=== PATIENT | female | born 1950 | race Caucasian/White ===

== ENCOUNTER 2016-09-13 08:37 | Emergency (ER) | payer OTHER ==
[~2016-09-13] VITALS: Ht 162.6 cm; Wt 86.4 kg
[2016-09-13 08:39] VITALS: BP 154/88; PULSE 81; TEMP 99.3
== END 2016-09-13 14:07 | disposition home or self-care (01) ==
LOC: COL.ER 08:37
DX: S00.33XA Contusion of nose, initial encounter (principal); S62.316A Displaced fracture of base of fifth metacarpal bone, right hand, initial encounter for closed fracture; R07.89 Other chest pain; S00.11XA Contusion of right eyelid and periocular area, initial encounter; S60.221A Contusion of right hand, initial encounter; W01.198A Fall on same level from slipping, tripping and stumbling with subsequent striking against other object, initial encounter; S00.81XA Abrasion of other part of head, initial encounter; I10 Essential (primary) hypertension; E11.9 Type 2 diabetes mellitus without complications; Z88.2 Allergy status to sulfonamides; Z79.84 Long term (current) use of oral hypoglycemic drugs

== ENCOUNTER → 2016-09-13 | Outpatient (REF) ==
[~2016-09-13] MED LIST: ACTOS 45MG45 MG/TAB PO; ACTOS30 MG PO; BYDUREON P2 MG/0.65; BYSTOLIC20 MG PO; CINNAMON500 MG PO; COREG12.5 MG PO; DIOVAN HCT 25 M1 TA1 PO; FISH OIL1 IU PO; GLUCOPHAGE500 MG/TAB PO; LEXAPRO 10MG10 MG PO; METFORMIN500 MG PO; MOTRIN 800800 MG/TAB PO; MULTIPLE VITAMI1 CAP PO; NORCO 325 MG-7.1 TAB PO; PERCOCET 325 MG1 TA2 PO; ROXICODONE 55 MG/TAB PO; TOPROL XL100 MG PO; TOPROL XL25 MG PO; VITAMIN D50000 I1 PO
== END ==
LOC: WSOH 11:20
DX: Z02.89 Encounter for other administrative examinations (principal)

== ENCOUNTER 2016-12-12 11:00 | Outpatient (RCR) | payer OTHER | END 2016-12-14 09:33 | disposition home or self-care (01) | LOC: WSOT 11:00 | DX: S62.316D Displaced fracture of base of fifth metacarpal bone, right hand, subsequent encounter for fracture with routine healing (principal); X58.XXXD Exposure to other specified factors, subsequent encounter | CPT/HCPCS: G8987-GO; G8988-GO; G8989-GO ==

== ENCOUNTER → 2016-12-26 | Outpatient (CLI) | payer MEDICARE | LOC: COL.RAD 09:40 | DX: M79.672 Pain in left foot (principal) | CPT/HCPCS: J3301 ==

== ENCOUNTER 2017-01-23 09:45 | Outpatient (RCR) | payer MEDICARE | END 2017-02-12 11:15 | disposition still patient (30) | LOC: WSPT 09:45 | DX: M17.0 Bilateral primary osteoarthritis of knee (principal) | CPT/HCPCS: G8978-GP; G8979-GP; G8980-GP ==

== ENCOUNTER → 2017-09-09 | Outpatient (CLI) | payer MEDICARE | LOC: COL.RAD 13:30 | DX: M79.672 Pain in left foot (principal) | CPT/HCPCS: J3301; Q9967 ==

== ENCOUNTER 2017-12-18 09:49 | Inpatient (IN) | payer MEDICARE ==
[~2017-12-18] VITALS: Ht 162.6 cm; Wt 82.8 kg
[2018-03-11] VITALS (11 sets, daily range): BP systolic 132–152; BP diastolic 61–87; PULSE 67–85; TEMP 98.1–98.8
[2018-03-11] MEDS ORDERED: WELLBUTRIN XL150 MG PO (06:02)
[2018-03-12 04:16] VITALS: BP 139/62; PULSE 81; TEMP 98.6
[2018-03-12 06:36] LABS: HEMATOCRIT 29.9 % (37.0-47.0)
[2018-03-12] MEDS ORDERED: ASPIRIN 32325 MG/TA1 PO (06:42)
[2018-03-12] MEDS ORDERED: ULTRAM 50MG TAB50 MG PO (06:42)
[2018-03-12] MEDS ORDERED: NORCO 325 MG-7.1 TAB PO (06:42)
[2018-03-12 07:54] VITALS: BP 130/58; PULSE 83; TEMP 98.6
[2018-03-12 12:05] VITALS: BP 133/62; PULSE 72; TEMP 98.3
[2018-03-12 15:30] VITALS: BP 151/68; PULSE 72; TEMP 98.1
[2018-03-12 19:58] VITALS: BP 141/61; PULSE 75; TEMP 97.8
[2018-03-12 23:18] VITALS: BP 132/60; PULSE 81; TEMP 97.6
[2018-03-13 04:25] VITALS: BP 110/52; BP 118/49; PULSE 57; PULSE 80; TEMP 98.2
[2018-03-13 07:30] LABS: HEMATOCRIT 31.2 % (37.0-47.0); HEMOGLOBIN 10.1 g/dl (12.5-16.0)
[2018-03-13 08:13] VITALS: BP 154/71; PULSE 85; TEMP 98.4
[2018-03-13 12:03] VITALS: BP 140/62; PULSE 73; TEMP 98.3
[2018-03-13 15:37] VITALS: BP 185/74; PULSE 73; TEMP 98.4
[2018-03-13 19:45] VITALS: BP 123/63; PULSE 85; TEMP 98.2
[2018-03-13 23:22] VITALS: BP 148/61; PULSE 89; TEMP 98.5
[2018-03-14 03:41] VITALS: BP 137/58; PULSE 88; TEMP 98.6
[2018-03-14 07:47] VITALS: BP 125/57; PULSE 83; TEMP 98.1
[2018-03-14 11:39] VITALS: BP 130/61; PULSE 80; TEMP 97.7
== END 2018-03-14 14:20 | disposition home or self-care (01) | DRG 470 ==
LOC: JCC 02-11 07:30
PROVIDERS: Orthopaedic Surgery
PROC: 0SRC0J9 Replacement of Right Knee Joint with Synthetic Substitute, Cemented, Open Approach (ICD-10-PCS; principal; 2018-03-11 07:30)
PROC: 3E0U33Z Introduction of Anti-inflammatory into Joints, Percutaneous Approach (ICD-10-PCS; 2018-03-11 07:30)
DX: M17.0 Bilateral primary osteoarthritis of knee (principal); E11.9 Type 2 diabetes mellitus without complications; I10 Essential (primary) hypertension
CPT/HCPCS: A4314; A9284; C1713; C1776; J0690; J1885; J2250; J2550; J2704; J2795; J3301; J7030; J7120; J7121

== ENCOUNTER 2018-02-20 10:45 | Outpatient (RCR) | payer MEDICARE | END 2018-02-21 08:30 | disposition home or self-care (01) | LOC: WSPT 10:45 | DX: Z01.818 Encounter for other preprocedural examination (principal); M17.11 Unilateral primary osteoarthritis, right knee | CPT/HCPCS: G8978-GP; G8979-GP ==

== ENCOUNTER 2018-02-27 11:14 | Outpatient (RCR) | payer MEDICARE | END 2018-02-27 11:20 | disposition home or self-care (01) | LOC: WSC 11:14 → WSPT 03-03 16:00 | DX: Z01.818 Encounter for other preprocedural examination (principal); M17.11 Unilateral primary osteoarthritis, right knee | CPT/HCPCS: G8978-GP; G8979-GP ==

== ENCOUNTER → 2018-05-01 | Outpatient (CLI) | payer MEDICARE ==
[~2018-05-01] MED LIST changes: +ASPIRIN 32325 MG/TA1 PO; +ULTRAM 50MG TAB50 MG PO; +WELLBUTRIN XL150 MG PO
== END ==
LOC: MC.RAD 13:37
DX: Z12.31 Encounter for screening mammogram for malignant neoplasm of breast (principal)

== ENCOUNTER 2018-05-27 06:39 | Day surgery (SDC) | payer MEDICARE ==
[~2018-05-27] VITALS: Ht 162.6 cm; Wt 83.8 kg
[~2018-05-27 06:39] MED LIST changes: -BYDUREON P2 MG/0.65; +BYDUREON P2 MG/0.65 SQ
[2018-05-27 06:56] VITALS: BP 150/78; PULSE 75; TEMP 98
[2018-05-27 08:15] VITALS: BP 123/63; PULSE 69; TEMP 97.5
[2018-05-27 08:30] VITALS: BP 122/67; PULSE 72
== END 2018-05-27 09:07 | disposition home or self-care (01) ==
LOC: SDCO 06:39
DX: Z12.11 Encounter for screening for malignant neoplasm of colon (principal); K57.30 Diverticulosis of large intestine without perforation or abscess without bleeding; I10 Essential (primary) hypertension; E11.9 Type 2 diabetes mellitus without complications; Z79.899 Other long term (current) drug therapy; E78.5 Hyperlipidemia, unspecified; Z83.3 Family history of diabetes mellitus
CPT/HCPCS: OP; J2250; J2405; J3010; J7030

== ENCOUNTER 2018-06-09 13:45 | Outpatient (RCR) | payer MEDICARE | END 2018-06-17 | disposition home or self-care (01) | LOC: WSPT | DX: Z47.1 Aftercare following joint replacement surgery (principal); Z96.651 Presence of right artificial knee joint | CPT/HCPCS: G0283-GP; G8978-GP; G8979-GP ==

== ENCOUNTER → 2018-07-11 | Outpatient (CLI) | payer MEDICARE | LOC: COL.RAD 08:54 | DX: S90.32XA Contusion of left foot, initial encounter (principal) | CPT/HCPCS: J3301; Q9967 ==

== ENCOUNTER 2018-12-31 07:45 | Outpatient (RCR) | payer MEDICARE | END 2019-03-25 | LOC: WSPT | DX: M25.812 Other specified joint disorders, left shoulder (principal) ==

== ENCOUNTER → 2020-09-05 | Outpatient (RCR) | payer MEDICARE | END | disposition home or self-care (01) | LOC: WSPT | DX: M19.012 Primary osteoarthritis, left shoulder (principal) ==

== ENCOUNTER 2020-11-02 13:00 | Outpatient (RCR) | payer MEDICARE | END 2020-12-06 | disposition home or self-care (01) | LOC: WSPT | DX: M19.012 Primary osteoarthritis, left shoulder (principal) | CPT/HCPCS: G0283-GP ==

== ENCOUNTER 2021-03-13 08:11 | Outpatient (RCR) | payer MEDICARE ==
[2021-03-20] MEDS ORDERED: OMNICEF 300MG300 MG PO (08:12)
[2021-03-20] MEDS ORDERED: COREG 6.256.25 MG/TA PO (08:13)
[2021-03-20] MEDS ORDERED: DIOVAN HCT 25 M1 TA1 PO (08:13)
[2021-03-20] MEDS ORDERED: ACTOS 45MG45 MG/TAB PO (08:14)
[2021-03-20] MEDS ORDERED: BYDUREON B2 MG/0.85 (08:14)
[2021-03-20] MEDS ORDERED: VITAMIN D31000 I1 PO (08:15)
== END 2021-06-11 | disposition home or self-care (01) ==
LOC: WSPT
DX: M25.562 Pain in left knee (principal)

== ENCOUNTER 2021-03-20 06:39 | Day surgery (SDC) | payer MEDICARE ==
[2021-03-20] VITALS (11 sets, daily range): BP systolic 107–145; BP diastolic 54–91; PULSE 57–84; TEMP 97.1–98.3
[~2021-03-20] VITALS: Ht 162.6 cm; Wt 88.3 kg
[2021-03-20 07:32] LABS: COLLECTION METHOD CLEAN CATCH
[2021-03-20 07:37] LABS: PH 6 (5-8); SQUAMOUS EPITHELIAL None Seen /hpf; URINE APPEARANCE Clear; URINE BACTERIA None Seen /hpf; URINE BILIRUBIN Negative (NEGATIVE); URINE BLOOD Negative (NEGATIVE); URINE COLOR Yellow; URINE GLUCOSE Negative (NEGATIVE); URINE KETONE Negative (NEGATIVE); URINE LEUKOCYTE ESTERASE Negative (NEGATIVE); URINE NITRATE Negative (NEGATIVE); URINE PROTEIN(semi-quant) Negative (NEGATIVE); URINE RBC 0-2 /hpf; URINE UROBILINOGEN Negative (NEGATIVE); URINE WBC 0-2 /hpf
--- NOTE | 2021-03-20 08:01 | NUR ---
TO RM AT 0647- ALERT ORIENTED X3, VERBALIZED UNDERSTANDING AND SIGNED CONSENT.
[2021-03-20] MEDS ORDERED: OMNICEF 300MG300 MG PO (08:12)
[2021-03-20] MEDS ORDERED: COREG 6.256.25 MG/TA PO (08:13)
[2021-03-20] MEDS ORDERED: DIOVAN HCT 25 M1 TA1 PO (08:13)
[2021-03-20] MEDS ORDERED: BYDUREON B2 MG/0.85 (08:14)
[2021-03-20] MEDS ORDERED: ACTOS 45MG45 MG/TAB PO (08:14)
[2021-03-20] MEDS ORDERED: VITAMIN D31000 I1 PO (08:15)
--- NOTE | 2021-03-20 10:20 | NUR ---
PATIENT ADMITED INTO ROOM 327 POST OP LTK. A&O. VSS. DENIES PAIN AT THIS TIME. LTK DRESSING IS CD&I WITH ACEWRAP AND ICE PACK INPLACE. TEDS TO RLE. SCD'S TO BLE. POSITIVE PEDAL PULSES TO BLE. NO SPAULDING INPLACE. PATIENT STRAIGHT CATHED IN PACU AND DENIES NEED TO VOID AT THIS TIME. IV FLUIDS INFUSING INTO RIGHT WRIST IV. NO C/O N/V. HEAD TO TOE ASSESSMENT WNL. ORIENTED TO ROOM. CALL LIGHT IN REACH. PATIENT RESTING.
[2021-03-21 03:45] VITALS: BP 126/61; PULSE 77; TEMP 98.2
[2021-03-21 07:10] LABS: HEMOGLOBIN 11.5 g/dl (12.5-16.0)
[2021-03-21 07:11] LABS: HEMATOCRIT 35.1 % (37.0-47.0)
--- NOTE | 2021-03-21 08:00 | NUR ---
PATIENT IS A&O. VSS. RATES PAIN MILD AT REST AND MOD WITH ACTIVITY IN LLE. GAVE PRN OXYCODONE WITH AM MEDS. LTK DRESSING IS CD&I WITH AQUACEL. TEDS & SCD'S TO BLE. POSITIVE PEDAL PULSES TO BLE. PATIENT EAT/DRINK/VOIDING SUFFICIENT AMOUNTS. NO C/O N/V. RIGHT WRIST IV TO INT. HEAD TO TOE ASSESSMENT COMPLETE. AM MEDS GIVEN. CALL LIGHT IN REACH.
[2021-03-21 08:28] VITALS: BP 122/71; PULSE 78; TEMP 98.7
--- NOTE | 2021-03-21 11:18 | NUR ---
Initial visit; Patient thanked Wave Soldering Machine Operator for visit though just received a phone call. Wave Soldering Machine Operator offered her card and God's blessings.
--- NOTE | 2021-03-21 11:29 | NUR ---
Plan is to return home locally with Shen and DTR Chasity as care support . SW met with patient in room about care and dc plan. Patient reports that she has her right knee replaced three years agao and has saved all her DME equipment from that surgery. Patient reports that she has a walker and insurance will cover at [phone].oo dollars. Patient shares that she has grab bars, shower seat, toliet rizer and any other dme supports. Patient shares that her PCP is Dr. Ray, Dr. Cabrera or SARBJIT Pennington. Patient shares that she has outpatient physical therapy setup for out patient with Atilio Long through [facility]. Patient kayode having any care concerns pain is at a zero unless moving but is managed. Patient declined [facility] or other services. Educated on case management services. NF
[2021-03-21 12:43] VITALS: BP 116/73; PULSE 74; TEMP 98.3
--- NOTE | 2021-03-21 15:15 | NUR ---
PATIENT DISCHARGING HOME VIA WC TO PERSONAL VEHICLE WITH . GAVE DISCHARGE INSTRUCTIONS, PATIENT ALREADY HAS PRESCRIPTIONS FILLED, AND DISCUSSED F/U APT. ANSWERED QUESTIONS/CONCERNS. RN DC'D RIGHT WRIST IV, COVERED SITE WITH GAUZE & COBAN. PATIENT IS DRESSED, PACKED AND DISCHARGED.
== END 2021-03-21 15:15 | disposition home or self-care (01) ==
LOC: SDCO 06:39 → SURG 10:20 → SDCO 03-21 15:15
PROVIDERS: Orthopaedic Surgery Sports Medicine
DX: M17.12 Unilateral primary osteoarthritis, left knee (principal); I10 Essential (primary) hypertension; E11.9 Type 2 diabetes mellitus without complications; Z79.899 Other long term (current) drug therapy; Z20.822 Contact with and (suspected) exposure to COVID-19
CPT/HCPCS: OP; A9284; C1713; C1776; J0690; J1100; J1885; J2250; J2405; J2704; J3010; J7030; J7120

== ENCOUNTER → 2021-04-04 | Outpatient (CLI) | payer MEDICARE ==
[~2021-04-04] MED LIST changes: +BYDUREON B2 MG/0.85; +COREG 6.256.25 MG/TA PO; +OMNICEF 300MG300 MG PO; +VITAMIN D31000 I1 PO
== END ==
LOC: COL.VAS 14:46
DX: R22.42 Localized swelling, mass and lump, left lower limb (principal)

== ENCOUNTER 2021-06-06 11:30 | Outpatient (RCR) | payer MEDICARE | END 2021-06-21 | disposition still patient (30) | LOC: PT.GENESIS | DX: M25.562 Pain in left knee (principal) | CPT/HCPCS: G0283-GP ==

== ENCOUNTER 2021-08-31 09:30 | Outpatient (RCR) | payer MEDICARE | END 2021-09-01 | disposition home or self-care (01) | LOC: PT.GENESIS | DX: M25.562 Pain in left knee (principal); Z96.652 Presence of left artificial knee joint ==

== ENCOUNTER 2021-10-27 09:15 | Outpatient (RCR) | payer MEDICARE | END 2021-10-30 | disposition home or self-care (01) | LOC: PT.GENESIS | DX: M25.562 Pain in left knee (principal) ==

== ENCOUNTER 2023-04-23 13:02 | Outpatient (RCR) | payer MEDICARE ==
[2023-04-30] MEDS ORDERED: OZEMPIC2 MG/0.75 SQ (06:36)
[2023-04-30] MEDS ORDERED: LIPITOR20 MG PO (06:36)
[2023-04-30] MEDS ORDERED: B-121000 MCG PO (06:38)
== END 2023-05-02 08:16 | disposition home or self-care (01) ==
LOC: PT.GENESIS 13:02
DX: M22.3X2 Other derangements of patella, left knee (principal); Z96.652 Presence of left artificial knee joint

== ENCOUNTER 2023-05-29 08:00 | Outpatient (RCR) | payer MEDICARE ==
[~2023-05-29 08:00] MED LIST changes: +B-121000 MCG PO; +LIPITOR20 MG PO; +OZEMPIC2 MG/0.75 SQ
== END 2023-06-01 | disposition home or self-care (01) ==
LOC: PT.GENESIS
DX: M22.3X2 Other derangements of patella, left knee (principal); Z96.652 Presence of left artificial knee joint
CPT/HCPCS: G0283-GP

== ENCOUNTER 2024-02-24 13:15 | Outpatient (RCR) | payer MEDICARE | END 2024-03-01 | disposition home or self-care (01) | LOC: PT.GENESIS | DX: S42.232D 3-part fracture of surgical neck of left humerus, subsequent encounter for fracture with routine healing (principal); Z96.652 Presence of left artificial knee joint; X58.XXXD Exposure to other specified factors, subsequent encounter ==

== ENCOUNTER → 2024-05-07 | Outpatient (CLI) | payer MEDICARE | LOC: COL.RAD 07:30 | DX: K42.9 Umbilical hernia without obstruction or gangrene (principal); N20.0 Calculus of kidney; K86.2 Cyst of pancreas ==